=== PATIENT | female | born 1960 | race Caucasian/White ===

== ENCOUNTER 2018-05-28 22:38 | Emergency (ER) | payer OTHER ==
[~2018-05-28] VITALS: Ht 165.1 cm; Wt 74.8 kg
[2018-05-28] MEDS ORDERED: CYTOMEL5 MCG ORAL (22:42)
[2018-05-28 22:45] VITALS: BP 119/80
--- NOTE | 2018-05-28 22:45 | NUR ---
ER Nurse Note: Pt BIBA from home c/o ingestion of around 10-20ml of organo oil around 2200. Pt denies n/v/d.Pt a&ox4, VSS, no signs of distress. Pt states slight burning sensation after ingestion. ERMD at pt side; will continue to monitor.
--- NOTE | 2018-05-28 22:54 | Emergency Room Report ---
History of Present Illness General Chief Complaint: General Complaint Source: Patient Present Illness [facility] This is a 57-year-old female with no significant past medical history. She presents with chief complaint of possible toxic ingestion. She had a URI symptoms and her daughter bought her bunch of supplements from [employer]. One of the supplement was Oregano oil. She makes a few drops into a drink and drank it. She had a burning sensation in her throat after she drank that. She was concerned called [facility]. [facility] sent in eminence out and brought her in. Patient said some burning sensation of throat but no respiratory distress. No nausea no vomiting. Denies any other complaint. Allergies: Coded Allergies: No Known Allergies (Unverified , 05/28/18) Patient History Past Medical History: see triage record, old chart reviewed Past Surgical History: none Pertinent Family History: none Social History: Denies: smoking Last Menstrual Period: RENEE Now: No Immunizations: other Reviewed Nursing Documentation: PMH: Agreed; PSxH: Agreed Nursing Documentation-PMH Past Medical History: No History, Except For Hx Cardiac Problems: No - hypothyroid Review of Systems Eye: Denies: eye pain, blurred vision ENT: Denies: ear pain, nose congestion, throat swelling Respiratory: Denies: cough, shortness of breath Cardiovascular: Denies: chest pain, palpitations Gastrointestinal: Denies: abdominal pain, diarrhea, nausea, vomiting Musculoskeletal: Denies: back pain, joint pain Skin: Denies: rash Neurological: Denies: headache, numbness Endocrine: Denies: increased thirst, increased urine Hematologic/Lymphatic: Denies: easy bruising All Other Systems: negative except mentioned in HPI Physical Exam Vital Signs Date Time Temp Pulse Resp B/P (MAP) Pulse Ox O2 Delivery O2 Flow Rate FiO2 05/28/18 22:35 98.2 82 16 119/80 98 Room Air vitals normal Sp02 EP Interpretation: reviewed, normal General Appearance: well appearing, no apparent distress, alert Head: normocephalic, atraumatic Eyes: bilateral eye PERRL, bilateral eye EOMI ENT: hearing grossly normal, normal pharynx Neck: full range of motion, supple, no meningismus Respiratory: chest non-tender, lungs clear, normal breath sounds Cardiovascular #1: regular rate, rhythm, no murmur Gastrointestinal: normal bowel sounds, non tender, no mass, no organomegaly, no bruit, non-distended Musculoskeletal: back normal, gait/station normal, normal range of motion Psychiatric: mood/affect normal Skin: warm/dry Medical Decision Making Diagnostic Impression: Primary Impression: Ingestion of caustic substance Qualified Codes: T54.91XA - Toxic effect of unspecified corrosive substance, accidental (unintentional), initial encounter ER Course Patient presents with burning sensation from ingestion of oregano oil. Amount ingested was very minimal. No evidence of toxicity. Patient reassured and will be discharged home. Last Vital Signs Date Time Temp Pulse Resp B/P (MAP) Pulse Ox O2 Delivery O2 Flow Rate FiO2 05/28/18 22:35 98.2 82 16 119/80 98 Room Air Status: unchanged Disposition: HOME, SELF-CARE Condition: Stable Additional Instructions: Follow-up with your doctor in a week as needed. Increase fluids. Return if symptom worsen. Mark Liang MD May 28, 2018 22:54
[2018-05-28 23:00] VITALS: BP 119/80
--- NOTE | 2018-05-28 23:00 | NUR ---
ER Nurse Note: Pt seen, treated, medically cleared for discharge by ERMD. Discharge instructions and prescirptions given with repeat verbalization by pt. Instructed pt to follow up with primary care provider within one week. Pt a&ox4, VSS, no signs of distress. ID band removed. All safety measures met; left with all belonings on steady gait via own transportation.
== END 2018-05-28 23:00 | disposition home or self-care (01) ==
LOC: EDBD 22:38 → EMR 22:58
DX: T54.91XA Toxic effect of unspecified corrosive substance, accidental (unintentional), initial encounter (principal); Y92.89 Other specified places as the place of occurrence of the external cause
CPT/HCPCS: 99281